=== PATIENT | male | born 1970 | race African-American/Black ===

== ENCOUNTER 2018-07-18 11:57 | Emergency (ER) | payer SELFPAY ==
[2018-07-18] VITALS (37 sets, daily range): BP systolic 169–208; BP diastolic 104–126; PULSE 68–100; RESP 0–33; TEMP 36.5–37.4; O2SAT 92–100
--- NOTE | 2018-07-18 12:11 | DI.CT_ITS ---
SYMPTOM/DIAGNOSIS: LEFT CHEST PAIN, HTN CTA CHEST, ABDOMEN AND PELVIS: 07/18/18 CT angiography of the chest, abdomen and pelvis was performed with a bolus infusion of 100 cc Omnipaque 350. Images obtained through the lungs show apparent ground glass and consolidative opacities of the left lung base consistent with pneumonia. Appropriate follow up chest radiographs requested Tracheobronchial tree appears intact. No mediastinal adenopathy. No evidence of pulmonary embolic disease or thoracic aortic dissection or aneurysm. Abdominal aorta is of normal diameter. Mild atheromatous plaque of the distal aorta and pelvic vessels noted. No evidence of aneurysm or dissection in aorta or major abdominal or pelvic branches. Dual left renal arteries noted which is a normal variant. There is unremarkable appearance of the liver except for a couple of low attenuation left hepatic lobe lesions, the largest measuring roughly 22 mm in diameter with peripheral nodular enhancement suggesting probable hemangioma. Ultrasound correlation suggested to evaluate for findings consistent with hemangioma. Small bilateral renal cysts noted. Spleen is unremarkable in appearance as is the pancreas. Gallbladder and bile ducts are CT normal. No abdominal or pelvic adenopathy seen. No significant abdominal wall hernia seen although there is a small fat containing umbilical hernia. Appendix appears normal. No evidence of diverticulitis or bowel obstruction. CONCLUSION: 1. Findings consistent with left lower lobe pneumonia, chest radiographic follow up suggested. 2. Indeterminate left lobe hepatic lesions, likely hemangioma. Ultrasound correlation recommended. 3. No evidence of pulmonary embolic disease or other major vascular abnormality.
--- NOTE | 2018-07-18 12:11 | DI.RAD_ITS ---
SYMPTOM/DIAGNOSIS: LT CHEST PAIN, HTN PORTABLE AP CHEST: 1220 HOURS, 07/18/18 The heart is not enlarged. There are patchy radiodensities in the left lung base consistent with pneumonia as identified on today's CTA Follow up PA and lateral chest requested following treatment.
--- NOTE | 2018-07-18 12:13 | W.ED.GENAD ---
Discharge Plan Disposition Patient Disposition: HOME Condition: Improving Discharge Details Chief Complaint: Chest Pain Clinical Impression: Left lower lobe pneumonia Primary Care Provider: None,None ED Provider: George Desai Home Meds and New Rx's Prescriptions: New cefdinir 300 mg capsule 300 mg PO Q12H 10 Days Qty: 20 RF: 0 guaifenesin [Mucinex] 600 mg tablet extended release 12hr 600 mg PO Q12H PRNQty: 10 RF: 0 Continued hydrochlorothiazide 12.5 mg Capsule 12.5 mg PO DAILY Qty: 30 RF: 0 Discharge Instructions Instructions: Pneumonia (ED) Additional Instructions: Home to rest. Small, frequent sips of fluids to maintain hydration. Tylenol 975 mg every 6 hours, and/or ibuprofen 800 mg every 8 hours as needed for aches, pains, fever. Take antibiotics as prescribed and restart hydrochlorothiazide. Our care management team will work to get you a follow-up to establish primary care Return to the emergency department for any acute concerns Medical Decision Making 48-year-old male with history of currently untreated hypertension presents with what he states is the abrupt onset of left chest pain that was radiates to his shoulder beginning this morning at 6 AM. He arrives to emergency department approximately noon with a blood pressure of 207/108 in moderate distress. With his untreated hypertension, left-sided chest pain, and coarse breath sounds differential diagnosis includes aortic dissection, pleurisy, pneumothorax, pneumonitis. Patient placed on a cardiac surgeon, 2 large-bore IVs placed, patient given small aliquot of morphine for pain, referred for stat laboratory testing, EKG and portable chest x-ray. Patient's diagnostics are notable for white blood cell count of 21, negative troponin, lactate <2, & elevated d-dimer Screening portable chest x-ray with question left basilar infiltrate. Given the patient's differential diagnosis and ongoing discomfort he was referred for CT scan of the chest/aorta. This reveals no evidence of pulmonary embolism or aortic dissection. Patient does have left basilar pneumonia. Patient given ketorolac, fluid bolus, and small amount of anxiolytic, as well as IV Rocephin. He was observed and repeat troponin obtained. Patient reveals that he has had 7-10 days without his HCTZ, which I will prescribed and restart at what he states is a dose of 12.5 mg/day. We will ask that he have care management to arrange an outpatient follow-up. He and his understand return precautions to the ED. Will be placed on 10 days of oral antibiotic Lab Data Lab results reviewed: Yes I reviewed the patient's lab results. Laboratory Tests Range/Units 07/18/18 07/18/18 07/18/18 12:10 12:10 12:10 WBC (4.4-10.8) k/cumm 21.49 H RBC (4.50-6.00) m/cumm 4.74 Hgb (13.5-17.5) g/dL 14.6 Hct (40.0-50.0) % 43.0 MCV (80-95) fL 90.7 MCH (27.0-33.0) pg 30.8 MCHC (32.0-36.0) g/dL 34.0 RDW (11.8-14.1) % 13.0 Plt Count (130-400) x1000/uL 254 MPV (8.0-11.0) fL 10.0 Immature Gran % 0.3 Neutrophils % 85.5 Lymphocytes % 10.2 Monocytes % 3.5 Eosinophils % 0.4 Basophils % 0.1 Absolute Neutrophils (1.2-6.7) k/cumm 18.37 H Absolute Lymphocytes (1.2-3.4) k/cumm 2.19 Absolute Monocytes (0.11-0.7) k/cumm 0.75 H Absolute Eosinophils (0.0-0.7) k/cumm 0.09 Absolute Basophils (0.0-0.2) k/cumm 0.02 APTT (21.0-31.4) sec 25.3 D-Dimer (<500) ng/mlFEU 1165 H Sodium Cancelled Potassium Cancelled Chloride Cancelled Carbon Dioxide Cancelled Anion Gap Cancelled BUN Cancelled Creatinine Cancelled Estimated GFR/1.73 m2 Cancelled Glucose Cancelled Lactate (0.6-1.4) mmol/L Calcium Cancelled Magnesium (1.8-2.4) mg/dL Total Bilirubin Cancelled AST Cancelled ALT Cancelled Alkaline Phosphatase Cancelled Troponin I (0.00-0.06) ng/mL Total Protein Cancelled Albumin Cancelled Patient ABO/Rh Antibody Screen Range/Units 07/18/18 07/18/18 07/18/18 12:10 12:10 13:05 WBC (4.4-10.8) k/cumm RBC (4.50-6.00) m/cumm Hgb (13.5-17.5) g/dL Hct (40.0-50.0) % MCV (80-95) fL MCH (27.0-33.0) pg MCHC (32.0-36.0) g/dL RDW (11.8-14.1) % Plt Count (130-400) x1000/uL MPV (8.0-11.0) fL Immature Gran % Neutrophils % Lymphocytes % Monocytes % Eosinophils % Basophils % Absolute Neutrophils (1.2-6.7) k/cumm Absolute Lymphocytes (1.2-3.4) k/cumm Absolute Monocytes (0.11-0.7) k/cumm Absolute Eosinophils (0.0-0.7) k/cumm Absolute Basophils (0.0-0.2) k/cumm APTT (21.0-31.4) sec D-Dimer (<500) ng/mlFEU Sodium 143 Potassium 4.1 Chloride 106 Carbon Dioxide 29.7 Anion Gap 7.3 BUN 11 Creatinine 1.10 Estimated GFR/1.73 m2 >= 60.00 Glucose 97 Lactate (0.6-1.4) mmol/L 1.6 H Calcium 9.4 Magnesium (1.8-2.4) mg/dL 1.5 L Total Bilirubin 0.5 AST 13 L ALT 22 Alkaline Phosphatase 76 Troponin I (0.00-0.06) ng/mL < 0.02 Total Protein 7.5 Albumin 4.0 Patient ABO/Rh O Positive Antibody Screen Negative ECG Data Attestation: I personally reviewed and interpreted this ECG (s) as follows: Interpretation: Normal sinus rhythm, rate of 84, the QRS is narrow, there is no ST segment elevation HPI General Mode of arrival: ambulatory. Date/Time Provider Initiated Documentation: 07/18/18 12:05. Limitations to Documentation: no limitations. Information obtained by: patient and family. History of Present Illness 48 year old M presents to the emergency department with the chief complaint of I was awakened by left-sided chest pain, described as severe, Quality is described as constant, and is localized to the left. Patient reports radiation to (To shoulder). Patient started experiencing this hour(s) and it has been constant. No relieving factors improve symptom(s), No exacerbating factors reported . Patient notes shortness of breath. Patient did receive the following treatments prior to arrival, none Related Data Home Medications Medication Instructions Recorded Confirmed cefdinir 300 mg PO Q12H 10 Days #20 cap 07/18/18 guaifenesin [Mucinex] 600 mg PO Q12H PRN #10 tab 07/18/18 hydrochlorothiazide 12.5 mg PO DAILY #30 cap 07/18/18 Previous Rx's Medication Instructions Recorded cefdinir 300 mg PO Q12H 10 Days #20 cap 07/18/18 guaifenesin [Mucinex] 600 mg PO Q12H PRN #10 tab 07/18/18 hydrochlorothiazide 12.5 mg PO DAILY #30 cap 07/18/18 Allergies Allergy/AdvReac Type Severity Reaction Status Date / Time No Known Allergies Allergy Unverified 07/18/18 12:52 General Stated Complaint: Chest Pain BELTRAN: 2 Review of Systems Review of Systems 8 systems reviewed and otherwise negative. Patient will note bloody ejaculate 2 days ago [facility] Social History Smoking/Tobacco Use Status: Current every day Exam Narrative Exam Narrative: GEN: awake, alert, oriented 3. Pleasant, well groomed, interactive. HEAD: Normocephalic, atraumatic ENT: Mucous membranes moist, oropharynx unremarkable, External ear exam unremarkable EYES: PERRL, EOMI NECK: Full ROM, no MADONNA, no menigismus CHEST/RESP: Nontender, clear to auscultation right, coarse breath sounds throughout left lung CARDIOVASCULAR: RRR, no murmur, rub mars. 2+ Rad pulse bilateral ABDOMEN: Soft, nontender, no mass. +Bowel sounds EXT: Full ROM, no edema, no rash Neuro: Grossly normal neurologic exam, conversant, interactive. Psych: Speech fluent, thoughts congruent, affect normal Course Vital Signs Temperature 36.5 C 07/18/18 12:05 Pulse 84 07/18/18 12:05 Respiratory Rate 14 07/18/18 12:05 Blood Pressure 207/108 H 07/18/18 12:05 Pulse Oximetry 99 07/18/18 12:05 Temperature 36.5 C 07/18/18 12:05 Temperature Source Temporal Artery Scan 12/23/18 12:05 Pulse 84 07/18/18 12:05 Respiratory Rate 14 07/18/18 12:05 Blood Pressure 207/108 H 07/18/18 12:05 Blood Pressure Position Sitting 07/18/18 12:05 Pulse Oximetry 99 07/18/18 12:05 Oxygen Delivery Method Room Air 07/18/18 12:05 Oxygen Flow Rate 0 07/18/18 12:05 Pain Level 9 07/18/18 12:05
--- NOTE | 2018-07-18 12:16 | ED.GENADUL_ITS ---
Discharge Plan Disposition Patient Disposition: HOME Condition: Improving Discharge Details Chief Complaint: Chest Pain Clinical Impression: Left lower lobe pneumonia Primary Care Provider: None,None ED Provider: George Desai Home Meds and New Rx's Prescriptions: New cefdinir 300 mg capsule 300 mg PO Q12H 10 Days Qty: 20 RF: 0 guaifenesin [Mucinex] 600 mg tablet extended release 12hr 600 mg PO Q12H PRNQty: 10 RF: 0 Continued hydrochlorothiazide 12.5 mg Capsule 12.5 mg PO DAILY Qty: 30 RF: 0 Discharge Instructions Instructions: Pneumonia (ED) Additional Instructions: Home to rest. Small, frequent sips of fluids to maintain hydration. Tylenol 975 mg every 6 hours, and/or ibuprofen 800 mg every 8 hours as needed for aches, pains, fever. Take antibiotics as prescribed and restart hydrochlorothiazide. Our care management team will work to get you a follow-up to establish primary care Return to the emergency department for any acute concerns Medical Decision Making 48-year-old male with history of currently untreated hypertension presents with what he states is the abrupt onset of left chest pain that was radiates to his shoulder beginning this morning at 6 AM. He arrives to emergency department approximately noon with a blood pressure of 207/108 in moderate distress. With his untreated hypertension, left-sided chest pain, and coarse breath sounds differential diagnosis includes aortic dissection, pleurisy, pneumothorax, pneumonitis. Patient placed on a monitoring tech, 2 large-bore IVs placed, patient given small aliquot of morphine for pain, referred for stat laboratory testing, EKG and portable chest x-ray. Patient's diagnostics are notable for white blood cell count of 21, negative troponin, lactate <2, & elevated d-dimer Screening portable chest x-ray with question left basilar infiltrate. Given the patient's differential diagnosis and ongoing discomfort he was referred for CT scan of the chest/aorta. This reveals no evidence of pulmonary embolism or aortic dissection. Patient does have left basilar pneumonia. Patient given ketorolac, fluid bolus, and small amount of anxiolytic, as well as IV Rocephin. He was observed and repeat troponin obtained. Patient reveals that he has had 7-10 days without his HCTZ, which I will prescribed and restart at what he states is a dose of 12.5 mg/day. We will ask that he have care management to arrange an outpatient follow-up. He and his w katerine understand return precautions to the ED. Will be placed on 10 days of oral antibiotic Lab Data Lab results reviewed: Yes I reviewed the patient's lab results. Laboratory Tests Range/Units 07/18/18 07/18/18 07/18/18 12:10 12:10 12:10 WBC (4.4-10.8) k/cumm 21.49 H RBC (4.50-6.00) m/cumm 4.74 Hgb (13.5-17.5) g/dL 14.6 Hct (40.0-50.0) % 43.0 MCV (80-95) fL 90.7 MCH (27.0-33.0) pg 30.8 MCHC (32.0-36.0) g/dL 34.0 RDW (11.8-14.1) % 13.0 Plt Count (130-400) x1000/uL 254 MPV (8.0-11.0) fL 10.0 Immature Gran % 0.3 Neutrophils % 85.5 Lymphocytes % 10.2 Monocytes % 3.5 Eosinophils % 0.4 Basophils % 0.1 Absolute Neutrophils (1.2-6.7) k/cumm 18.37 H Absolute Lymphocytes (1.2-3.4) k/cumm 2.19 Absolute Monocytes (0.11-0.7) k/cumm 0.75 H Absolute Eosinophils (0.0-0.7) k/cumm 0.09 Absolute Basophils (0.0-0.2) k/cumm 0.02 APTT (21.0-31.4) sec 25.3 D-Dimer (<500) ng/mlFEU 1165 H Sodium Cancelled Potassium Cancelled Chloride Cancelled Carbon Dioxide Cancelled Anion Gap Cancelled BUN Cancelled Creatinine Cancelled Estimated GFR/1.73 m2 Cancelled Glucose Cancelled Lactate (0.6-1.4) mmol/L Calcium Cancelled Magnesium (1.8-2.4) mg/dL Total Bilirubin Cancelled AST Cancelled ALT Cancelled Alkaline Phosphatase Cancelled Troponin I (0.00-0.06) ng/mL Total Protein Cancelled Albumin Cancelled Patient ABO/Rh Antibody Screen Range/Units 07/18/18 07/18/18 07/18/18 12:10 12:10 13:05 WBC (4.4-10.8) k/cumm RBC (4.50-6.00) m/cumm Hgb (13.5-17.5) g/dL Hct (40.0-50.0) % MCV (80-95) fL MCH (27.0-33.0) pg MCHC (32.0-36.0) g/dL RDW (11.8-14.1) % Plt Count (130-400) x1000/uL MPV (8.0-11.0) fL Immature Gran % Neutrophils % Lymphocytes % Monocytes % Eosinophils % Basophils % Absolute Neutrophils (1.2-6.7) k/cumm Absolute Lymphocytes (1.2-3.4) k/cumm Absolute Monocytes (0.11-0.7) k/cumm Absolute Eosinophils (0.0-0.7) k/cumm Absolute Basophils (0.0-0.2) k/cumm APTT (21.0-31.4) sec D-Dimer (<500) ng/mlFEU Sodium 143 Potassium 4.1 Chloride 106 Carbon Dioxide 29.7 Anion Gap 7.3 BUN 11 Creatinine 1.10 Estimated GFR/1.73 m2 >= 60.00 Glucose 97 Lactate (0.6-1.4) mmol/L 1.6 H Calcium 9.4 Magnesium (1.8-2.4) mg/dL 1.5 L Total Bilirubin 0.5 AST 13 L ALT 22 Alkaline Phosphatase 76 Troponin I (0.00-0.06) ng/mL < 0.02 Total Protein 7.5 Albumin 4.0 Patient ABO/Rh O Positive Antibody Screen Negative ECG Data Attestation: I personally reviewed and interpreted this ECG (s) as follows: Interpretation: Normal sinus rhythm, rate of 84, the QRS is narrow, there is no ST segment elevation HPI General Mode of arrival: ambulatory . Date/Time Provider Initiated Documentation: 07/18/18 12:05 . Limitations to Documentation: no limitations . Information obtained by: patient and family . History of Present Illness 48 year old M presents to the emergency department with the chief complaint of I was awakened by left-sided chest pain, described as severe, Quality is described as constant, and is localized to the left. Patient reports radiation to (To shoulder). Patient started experiencing this hour(s) and it has been constant. No relieving factors improve symptom(s), No exacerbating factors reported . Patient notes shortness of breath. Patient did receive the following treatments prior to arrival, none Related Data Home Medications Medication Instructions Recorded Confirmed cefdinir 300 mg PO Q12H 10 Days #20 cap 07/18/18 guaifenesin [Mucinex] 600 mg PO Q12H PRN #10 tab 07/18/18 hydrochlorothiazide 12.5 mg PO DAILY #30 cap 07/18/18 Previous Rx's Medication Instructions Recorded cefdinir 300 mg PO Q12H 10 Days #20 cap 07/18/18 guaifenesin [Mucinex] 600 mg PO Q12H PRN #10 tab 07/18/18 hydrochlorothiazide 12.5 mg PO DAILY #30 cap 07/18/18 Allergies Allergy/AdvReac Type Severity Reaction Status Date / Time No Known Allergies Allergy Unverified 07/18/18 12:52 General Stated Complaint: Chest Pain BELTRAN: 2 Review of Systems Review of Systems 8 systems reviewed and otherwise negative. Patient will note bloody ejaculate 2 days ago [facility] Social History Smoking/Tobacco Use Status: Current every day Exam Narrative Exam Narrative: GEN: awake, alert, oriented 3. Pleasant, well groomed, interactive. HEAD: Normocephalic, atraumatic ENT: Mucous membranes moist, oropharynx unremarkable, External ear exam unremarkable EYES: PERRL, EOMI NECK: Full ROM, no MADONNA, no menigismus CHEST/RESP: Nontender, clear to auscultation right, coarse breath sounds throughout left lung CARDIOVASCULAR: RRR, no murmur, rub mars. 2+ Rad pulse bilateral ABDOMEN: Soft, nontender, no mass. +Bowel sounds EXT: Full ROM, no edema, no rash Neuro: Grossly normal neurologic exam, conversant, interactive. Psych: Speech fluent, thoughts congruent, affect normal Course Vital Signs Temperature 36.5 C 07/18/18 12:05 Pulse 84 07/18/18 12:05 Respiratory Rate 14 07/18/18 12:05 Blood Pressure 207/108 H 07/18/18 12:05 Pulse Oximetry 99 07/18/18 12:05 Temperature 36.5 C 07/18/18 12:05 Temperature Source Temporal Artery Scan 07/18/18 12:05 Pulse 84 07/18/18 12:05 Respiratory Rate 14 07/18/18 12:05 Blood Pressure 207/108 H 07/18/18 12:05 Blood Pressure Position Sitting 07/18/18 12:05 Pulse Oximetry 99 07/18/18 12:05 Oxygen Delivery Method Room Air 07/18/18 12:05 Oxygen Flow Rate 0 07/18/18 12:05 Pain Level 9 07/18/18 12:05
[2018-07-18] MEDS: MORPHine 10 MG/ML VIAL 2 MG IVP (12:19)
[2018-07-18 12:26] LABS: Abs Immature Grans 0.06 k/cumm (0.0-0.09); Basophils % 0.1; Eosinophils % 0.4; HGB 14.6 g/dL (13.5-17.5); Immature Grans % 0.3; Lymphocytes % 10.2; Mean Corpuscular Hemoglobin 30.8 pg (27.0-33.0); Mean Corpuscular Volume 90.7 fL (80-95); Monocytes % 3.5; Neutrophils % 85.5; Platelet Count 254 x1000/uL (130-400); RBC 4.74 m/cumm (4.50-6.00); White Blood Cell Count 21.49 k/cumm (4.4-10.8)
[2018-07-18 12:33] LABS: Absolute Basophil Count 0.02 k/cumm (0.0-0.2); Absolute Eosinophil Count 0.09 k/cumm (0.0-0.7); Absolute Lymphocyte Count 2.19 k/cumm (1.2-3.4); Absolute Monocyte Count 0.75 k/cumm (0.11-0.7); Absolute Neutrophil Count 18.37 k/cumm (1.2-6.7)
[2018-07-18] MEDS: MORPHine 10 MG/ML VIAL 4 MG IVP (12:40)
[2018-07-18 12:41] LABS: PTT Activated 25.3 sec (21.0-31.4)
--- NOTE | 2018-07-18 12:43 | DI.VRAD_ITS ---
EXAM: XR Chest, 1 View EXAM DATE/TIME: 07/18/2018 12:13 PM CLINICAL HISTORY: 48 years old, male; Pain; Other: Lt chest pain HTN TECHNIQUE: XR of the chest, 1 view. COMPARISON: CR CHEST 2 VIEWS PA,LAT 06/26/2017 11:41 AM FINDINGS: Lungs: Mild left basilar atelectasis and/or pneumonia. Pleural space: Unremarkable. No pleural effusion. No pneumothorax. Heart/Mediastinum: Unremarkable. No cardiomegaly. Bones/joints: Mild dextroscoliosis. Other findings: Patient rotation to the left. IMPRESSION: Mild left basilar atelectasis and/or pneumonia. Dictated and Authenticated by: Jere Orellana MD. Ordering:GRIFFIN Vazquez MD
[2018-07-18] MEDS: Normal Saline 1,000 ML 150 ML IV (12:45)
[2018-07-18 12:47] LABS: ALT 22 U/L (12-78); AST 13 U/L (15-37); Alkaline Phosphatase 76 U/L (46-116); Anion Gap 7.3 mmol/L (3-11); BUN 11 mg/dL (7-18); Bilirubin, Total 0.5 mg/dL (0.2-1.0); CO2 29.7 mmol/L (21.0-32.0); Calcium 9.4 mg/dL (8.5-10.1); Chloride 106 mmol/L (98-107); Glucose 97 mg/dL (70-100); Magnesium 1.5 mg/dL (1.8-2.4); Potassium 4.1 mmol/L (3.5-5.1); Sodium 143 mmol/L (136-145); Total Protein 7.5 g/dL (6.4-8.2)
[2018-07-18 12:48] LABS: Troponin I < 0.02 ng/mL (0.00-0.06)
--- NOTE | 2018-07-18 12:53 | NUR.NOTE ---
Pt. states he has not taken his HCTZ in about a week.
[2018-07-18 12:56] LABS: D-Dimer 1165 ng/mlFEU (<500)
[2018-07-18] MEDS: Omnipaque 350 MG/ML 100 ML BTL IJ (13:03)
[2018-07-18] MEDS: Normal Saline 1,000 ML 1000 ML IV (13:10)
[2018-07-18 13:14] LABS: Lactate-non-spesis 1.6 mmol/L (0.6-1.4)
--- NOTE | 2018-07-18 13:27 | DI.VRAD_ITS ---
EXAM: CT Angiography Chest With Contrast EXAM DATE/TIME: 07/18/2018 12:13 PM CLINICAL HISTORY: 48 years old, male; Pain; Chest pain; Left-sided chest pain; Patient HX: L chest pain, HTN TECHNIQUE: Axial computed tomographic angiography images of the chest with intravenous contrast using CT angiography protocol. MIP reconstructed images were created and reviewed. COMPARISON: SC XR PORTABLE CHEST AP 07/18/2018 12:19 PM FINDINGS: Pulmonary arteries: No pulmonary embolus or aortic dissection. There is poor opacification of the pulmonary artery, however by adjusting the windows, no obvious pulmonary embolus is identified. Aorta: Normal. No aortic aneurysm. No aortic dissection. Lungs: Mild left basilar pneumonia. Pleural space: Normal. No pneumothorax. No pleural effusion. Heart: Normal. No cardiomegaly. No pericardial effusion. Lymph nodes: Unremarkable. No enlarged lymph nodes. Bones/joints: Unremarkable. No acute fracture. Soft tissues: Unremarkable. IMPRESSION: 1. Mild left basilar pneumonia. 2. No pulmonary embolus or aortic dissection. EXAM: CT Angiography Abdomen and Pelvis With Contrast EXAM DATE/TIME: 07/18/2018 12:13 PM CLINICAL HISTORY: 48 years old, male; Pain; Chest pain; Left-sided chest pain; Patient HX: L chest pain, HTN TECHNIQUE: Axial computed tomographic angiography images of the abdomen and pelvis with intravenous contrast material, including non-contrast images if performed. MIP and/or 3D reconstructed images were created and reviewed. COMPARISON: SC XR PORTABLE CHEST AP 07/18/2018 12:19 PM FINDINGS: VASCULATURE: Aorta: Calcification of the abdominal aorta and/or iliac arteries consistent with atherosclerotic vessel disease. Calcification of the abdominal aorta and/or iliac arteries consistent with atherosclerotic vessel disease. Celiac trunk and mesenteric arteries: No occlusion or significant stenosis. Renal arteries: 2 left renal arteries which is a normal variant. Right iliac arteries: No occlusion or significant stenosis. Right femoral/popliteal arteries: No occlusion or significant stenosis of the imaged proximal femoral artery. The popliteal artery was not imaged. Left iliac arteries: No occlusion or significant stenosis. Left femoral/popliteal arteries: No occlusion or significant stenosis of the imaged proximal femoral artery. The popliteal artery was not imaged. ABDOMEN: Liver: Low density focal fatty infiltration within the liver, anterior to the falciform ligament. This is a common finding. 2.0 cm low-density left liver lesion most consistent with benign hepatic hemangioma. Gallbladder and bile ducts: Unremarkable. No calcified stones. No ductal dilation. Pancreas: Unremarkable. No mass. No ductal dilation. Spleen: Unremarkable. No splenomegaly. Adrenals: Unremarkable. No mass. Kidneys and ureters: Multiple left renal cysts with the largest measuring 1.0 cm. Multiple right simple renal cysts with the largest measuring 1.2 cm. Stomach and bowel: Unremarkable. No obstruction. No mucosal thickening. Appendix: No evidence of appendicitis. PELVIS: Bladder: Unremarkable. No mass. Reproductive: Unremarkable as visualized. ABDOMEN and PELVIS: Intraperitoneal space: Unremarkable. No free air. No significant fluid collection. Bones/joints: No acute fracture. No dislocation. Soft tissues: Unremarkable. Lymph nodes: Unremarkable. No enlarged lymph nodes. IMPRESSION: No acute findings. Dictated and Authenticated by: Jere Orellana MD. Ordering:GRIFFIN Vazquez MD
[2018-07-18] MEDS: Ketorolac 30 MG/ML VIAL IVP (13:35)
[2018-07-18] MEDS: LORazepam 2 MG/ML VIAL 0.5 MG IVP (13:35)
--- NOTE | 2018-07-18 14:19 | NUR.NOTE ---
Pt. sleeping, RR WNL.
--- NOTE | 2018-07-18 14:58 | NUR.NOTE ---
Pt. continues to sleep, RR WNL. Remains hypertensive. Plan to let rest and reevaluate.
[2018-07-18 15:32] LABS: Bilirubin Negative (Negative); Blood Negative (Negative); Clarity Clear; Glucose Negative (Negative); Ketones Negative (Negative); Leukocyte Esterase Negative (Negative); Nitrite Negative (Negative); Urobilinogen 0.2 EU/dL (Up TO 0.2)
[2018-07-18 15:36] LABS: Troponin I < 0.02 ng/mL (0.00-0.06)
--- NOTE | 2018-07-18 15:39 | NUR.NOTE ---
MD Desai is at the bedside.
== END 2018-07-18 16:02 | disposition home or self-care (01) ==
PROVIDERS: Emergency Provider Emergency Medicine
DX: R07.9 Chest pain, unspecified (principal); R79.1 Abnormal coagulation profile; I10 Essential (primary) hypertension; J18.9 Pneumonia, unspecified organism; F17.210 Nicotine dependence, cigarettes, uncomplicated
CPT/HCPCS: 36415; 74177; 80053; 86850; 86900; 86901; 93005; 96361; 96365; 96375; 99285; 71045; 81003; 83605; 83735; 84484; 85025; 85379; 85730; 93010; J0696; J1885; J2060; J2270; J3490

== ENCOUNTER 2018-12-21 17:04 | Emergency (ER) | payer SELFPAY ==
[2018-12-21 17:07] VITALS: BP 180/113; PULSE 104; RESP 16; TEMP 36.8; O2SAT 98
--- NOTE | 2018-12-21 17:25 | DI.RAD_ITS ---
SYMPTOM/DIAGNOSIS: FELL, PAIN, SWELLING OF 2ND MCP RIGHT HAND: A comminuted intra-articular fracture of the head of the second metacarpal is demonstrated. There is slight splaying of the fracture fragments but no significant displacement is evident. There is no evidence of a dislocation.
--- NOTE | 2018-12-21 17:27 | W.ED.GENAD ---
Discharge Plan Disposition Patient Disposition: HOME Discharge Details Chief Complaint: Orthopedic Clinical Impression: Fracture of second metacarpal bone of right hand Primary Care Provider: None,None ED Provider: Carlito Dupont Home Meds and New Rx's Prescriptions: New ibuprofen 600 mg tablet 600 mg PO TID PRN (Reason: pain) Qty: 60 RF: 0 Continued hydrochlorothiazide 12.5 mg Capsule 12.5 mg PO DAILY Qty: 30 RF: 0 Discharge Instructions Instructions: Hand Fracture (ED) Additional Instructions: Please take ibuprofen 600mg by mouth every 6 hours as needed for pain. Keep splint clean, dry and intact. No use of right hand. Please follow-up with orthopedics. Call tomorrow to arrange follow-up. Return to the ER for any worsening or new concerning symptoms. Referrals: [facility] [Provider Group] Madhu Garcia MD [ [facility] STAFF PHYSICIAN] - Medical Decision Making 48-year-old male here with right hand injury. Concern for fracture of the proximal second proximal phalanx versus distal metacarpal. Intact neurologically distal second digit. No other injury. No laceration. Offered tylenol and ibuprofen and patient declined. X-ray of the hand reviewed and interpreted by me: comminuted intra articular fx distal 2nd MC Radiology interpreted as: Findings/impression: Bones/joints: Comminuted intra-articular fracture of the second metacarpal head with slight splaying of fracture fragments, but no significant displacement. Joints are well aligned. CT of the right hand interpreted by radiology: IMPRESSION: 1. Comminuted, intra-articular, and overriding fracture of the second metacarpal head, as detailed above. 2. Concern for mild volar subluxation of the second metacarpophalangeal joint. 3. Soft tissue swelling of the fracture site. A volar resting splint was applied by me. Patient neurovascularly intact distal to splint post application. Patient was instructed to call orthopedics tomorrow to arrange follow-up. He was instructed to keep the splint clean dry and intact and to not use his right hand. He was encouraged to return to the ED for any worsening or new concerning symptoms. Patient verbalized understanding of discharge instructions. HPI General Date/Time Provider Initiated Documentation: 12/21/18 17:22. HPI Narrative: 48-year-old male who tripped and fell and landed on his right hand just prior to arrival. He is here with chief complaint of right second proximal digit pain. Pain is moderate and worse on palpation and with attempted movement of the second digit. No associated numbness. No other injury. No laceration. Related Data Home Medications Medication Instructions Recorded Confirmed hydrochlorothiazide 12.5 mg PO DAILY #30 cap 07/18/18 12/21/18 ibuprofen 600 mg PO TID PRN #60 tab 12/21/18 Previous Rx's Medication Instructions Recorded hydrochlorothiazide 12.5 mg PO DAILY #30 cap 07/18/18 ibuprofen 600 mg PO TID PRN #60 tab 12/21/18 Allergies Allergy/AdvReac Type Severity Reaction Status Date / Time No Known Allergies Allergy Unverified 07/18/18 12:52 General Stated Complaint: Orthopedic BELTRAN: 4 Review of Systems Musculoskeletal Reports as per HPI Integumentary/Breasts Reports other (no laceration) Neurologic Reports as per HPI [facility] Social History Smoking/Tobacco Use Status: Current every day Tobacco Type: cigarettes Alcohol Intake: current Alcohol Intake frequency: a few times a week Drug use: Occasionally Substance use type: marijuana Do you feel safe at home: Yes Do you feel safe in your relationship?: Yes Exam Const General: cooperative and no acute distress Cardio Rate: regular rate and not tachycardic Rhythm: regular rhythm Pulses: radial pulses present on the right 2+ Skin Trauma: no lacerations or abrasions (rt hand) Neuro General: alert and awake Sensory Exam: no sensory deficits noted (rt hand) Extrem General: no edema Right upper extremity: hand Details: neurosensory exam normal, tenderness Location: of the 2nd digit Location: at the MCP joint, abnormal ROM of finger (limited extension 2nd digit at MCP 2/2 pain) and swelling Location: of the 2nd digit Location: at the MCP joint Course Vital Signs Temperature 36.8 C 12/21/18 17:07 Pulse 104 H 12/21/18 17:07 Respiratory Rate 16 12/21/18 17:07 Blood Pressure 180/113 H 12/21/18 17:07 Pulse Oximetry 98 12/21/18 17:07 Temperature 36.8 C 12/21/18 17:07 Temperature Source Skin 12/21/18 17:07 Pulse 104 H 12/21/18 17:07 Respiratory Rate 16 05/28/19 17:07 Respiratory Effort Non-Labored 12/21/18 17:11 Blood Pressure 180/113 H 12/21/18 17:07 Blood Pressure Position Sitting 12/21/18 17:07 Pulse Oximetry 98 12/21/18 17:07 Oxygen Delivery Method Room Air 12/21/18 17:07 Oxygen Flow Rate 0 12/21/18 17:07
--- NOTE | 2018-12-21 17:30 | ED.GENADUL_ITS ---
Discharge Plan Disposition Patient Disposition: HOME Discharge Details Chief Complaint: Orthopedic Clinical Impression: Fracture of second metacarpal bone of right hand Primary Care Provider: None,None ED Provider: Carlito Dupont Home Meds and New Rx's Prescriptions: New ibuprofen 600 mg tablet 600 mg PO TID PRN (Reason: pain) Qty: 60 RF: 0 Continued hydrochlorothiazide 12.5 mg Capsule 12.5 mg PO DAILY Qty: 30 RF: 0 Discharge Instructions Instructions: Hand Fracture (ED) Additional Instructions: Please take ibuprofen 600mg by mouth every 6 hours as needed for pain. Keep splint clean, dry and intact. No use of right hand. Please follow-up with orthopedics. Call tomorrow to arrange follow-up. Return to the ER for any worsening or new concerning symptoms. Referrals: [facility] [Provider Group] Madhu Garcia MD [ [facility] STAFF PHYSICIAN] - Medical Decision Making 48-year-old male here with right hand injury. Concern for fracture of the proximal second proximal phalanx versus distal metacarpal. Intact neurologically distal second digit. No other injury. No laceration. Offered tylenol and ibuprofen and patient declined. X-ray of the hand reviewed and interpreted by me: comminuted intra articular fx distal 2nd MC Radiology interpreted as: Findings/impression: Bones/joints: Comminuted intra-articular fracture of the second metacarpal head with slight splaying of fracture fragments, but no significant displacement. Joints are well aligned. CT of the right hand interpreted by radiology: IMPRESSION: 1. Comminuted, intra-articular, and overriding fracture of the second metacarpal head, as detailed above. 2. Concern for mild volar subluxation of the second metacarpophalangeal joint. 3. Soft tissue swelling of the fracture site. A volar resting splint was applied by me. Patient neurovascularly intact distal to splint post application. Patient was instructed to call orthopedics tomorrow to arrange follow-up. He was instructed to keep the splint clean dry and intact and to not use his right hand. He was encouraged to return to the ED for any worsening or new concerning symptoms. Patient verbalized understanding of discharge instructions. HPI General Date/Time Provider Initiated Documentation: 12/21/18 17:22 . HPI Narrative: 48-year-old male who tripped and fell and landed on his right hand just prior to arrival. He is here with chief complaint of right second proximal digit pain. Pain is moderate and worse on palpation and with attempted movement of the second digit. No associated numbness. No other injury. No laceration. Related Data Home Medications Medication Instructions Recorded Confirmed hydrochlorothiazide 12.5 mg PO DAILY #30 cap 07/18/18 12/21/18 ibuprofen 600 mg PO TID PRN #60 tab 12/21/18 Previous Rx's Medication Instructions Recorded hydrochlorothiazide 12.5 mg PO DAILY #30 cap 07/18/18 ibuprofen 600 mg PO TID PRN #60 tab 12/21/18 Allergies Allergy/AdvReac Type Severity Reaction Status Date / Time No Known Allergies Allergy Unverified 07/18/18 12:52 General Stated Complaint: Orthopedic BELTRAN: 4 Review of Systems Musculoskeletal Reports as per HPI Integumentary/Breasts Reports other (no laceration) Neurologic Reports as per HPI [facility] Social History Smoking/Tobacco Use Status: Current every day Tobacco Type: cigarettes Alcohol Intake: current Alcohol Intake frequency: a few times a week Drug use: Occasionally Substance use type: marijuana Do you feel safe at home: Yes Do you feel safe in your relationship?: Yes Exam Const General: cooperative and no acute distress Cardio Rate: regular rate and not tachycardic Rhythm: regular rhythm Pulses: radial pulses present on the right 2+ Skin Trauma: no lacerations or abrasions (rt hand) Neuro General: alert and awake Sensory Exam: no sensory deficits noted (rt hand) Extrem General: no edema Right upper extremity: hand Details: neurosensory exam normal, tenderness L ocation: of the 2nd digit Location: at the MCP joint, abnormal ROM of finger (limited extension 2nd digit at MCP 2/2 pain) and swelling Location: of the 2nd digit Location: at the MCP joint Course Vital Signs Temperature 36.8 C 12/21/18 17:07 Pulse 104 H 12/21/18 17:07 Respiratory Rate 16 12/21/18 17:07 Blood Pressure 180/113 H 12/21/18 17:07 Pulse Oximetry 98 12/21/18 17:07 Temperature 36.8 C 12/21/18 17:07 Temperature Source Skin 12/21/18 17:07 Pulse 104 H 12/21/18 17:07 Respiratory Rate 16 12/21/18 17:07 Respiratory Effort Non-Labored 12/21/18 17:11 Blood Pressure 180/113 H 12/21/18 17:07 Blood Pressure Position Sitting 12/21/18 17:07 Pulse Oximetry 98 12/21/18 17:07 Oxygen Delivery Method Room Air 12/21/18 17:07 Oxygen Flow Rate 0 12/21/18 17:07
--- NOTE | 2018-12-21 17:58 | DI.VRAD_ITS ---
EXAM: XR Right Hand EXAM DATE/TIME: 12/21/2018 5:27 PM CLINICAL HISTORY: 48 years old, male; Signs and symptoms; Other: Fall, pain, swelling 2nd mcp TECHNIQUE: Imaging protocol: XR Right hand. Views: 3 or more views. COMPARISON: No relevant prior studies available. Findings/impression: Bones/joints: Comminuted intra-articular fracture of the second metacarpal head with slight splaying of fracture fragments, but no significant displacement. Joints are well aligned. Dictated and Authenticated by: Akhil Angel MD. Ordering:FAVIAN Esteban MD
--- NOTE | 2018-12-21 18:36 | DI.CT_ITS ---
SYMPTOM/DIAGNOSIS: FX 2ND METACARPAL RIGHT HAND CT: A CT scan of the hand was performed without contrast enhancement. There is an apparent severely comminuted fracture of the second metacarpal head with fracture line extending into the adjacent joint. There is overriding of the fracture fragments of approximately 9 mm. There is approximately half shaft width volar displacement of the distal fracture fragments. There is likewise mild distraction of the fracture fragments. No other acute displaced fractures are seen. There is no evidence of a dislocation. There is however some concern for mild volar subluxation at the second metacarpal joint. Prominent soft tissue swelling is noted over the dorsum of the hand. SUMMARY: A comminuted, intra-articular overriding fracture of the second metacarpal head is demonstrated. There may be mild volar subluxation at the second metacarpal phalangeal joint.
[2018-12-21] MEDS: Ibuprofen 600 MG TAB PO (19:12)
--- NOTE | 2018-12-21 19:12 | DI.VRAD_ITS ---
EXAM: CT Right Upper Extremity Without Contrast, Hand EXAM DATE/TIME: 12/21/2018 6:37 PM CLINICAL HISTORY: 48 years old, male; Signs and symptoms; Other: FX 2nd mc, hand only TECHNIQUE: Imaging protocol: CT of the Right upper extremity without contrast was performed. Exam focused on the hand. Coronal and sagittal reformatted images were created and reviewed. Radiation optimization: All CT scans at this facility use at least one of these dose optimization techniques: automated exposure control; mA and/or kV adjustment per patient size (includes targeted exams where dose is matched to clinical indication); or iterative reconstruction. COMPARISON: CR XR hand RT complete 12/21/2018 5:35 PM FINDINGS: Bones/joints: There is a severely comminuted fracture of the second metacarpal head with fracture lines extending intra-articularly. There is overriding of fracture fragments of approximately 9 mm. There is approximately half shaft width volar displacement of the distal fracture fragments. There is likewise mild distraction of fracture fragments. No other acutely displaced fractures are appreciated. No evidence of dislocation, however there is concern for mild volar subluxation of the second metacarpophalangeal joint. Soft tissues: There is significant soft tissue swelling about the fracture site. IMPRESSION: 1. Comminuted, intra-articular, and overriding fracture of the second metacarpal head, as detailed above. 2. Concern for mild volar subluxation of the second metacarpophalangeal joint. 3. Soft tissue swelling of the fracture site. Dictated and Authenticated by: Royce Schumacher MD. Ordering:FAVIAN Esteban MD
[2018-12-21 19:49] VITALS: BP 160/98; PULSE 104; RESP 16; TEMP 36.8; O2SAT 98
--- NOTE | 2018-12-23 08:52 | PDOC.ERCMPRO ---
Care Management Progress Note 12/23-Dr. Garcia has reviewed the images and states that Mt needs hand surgery at [facility]. This CM called [facility] and spoke with Alexandria. Alexandria states that Dr. Ayala is the only hand surgeon at [facility]. Alexandria requested imaging be pushed to Dr. Ayala and that the reports, including ED reports get faxed to their clinic at [phone]. Alexandria states they will reach out to patient for f/u after the referral has been reviewed. Spoke with Luis in DI and he will push the reports to Dr. Ayala. Provider notes, DI reports, and demographics faxed to [facility]. Patient does not have a PCP. Dr. Sebastian vision teacher. Referral faxed to [facility] for f/u and to establish.
--- NOTE | 2018-12-23 08:57 | CMPROGNOTE_ITS ---
Care Management Progress Note 12/23-Dr. Garcia has reviewed the images and states that Mt needs hand surgery at [facility]. This CM called [facility] and spoke with Alexandria. Alexandria states that Dr. Ayala is the only hand surgeon at [facility]. Alexandria requested imaging be pushed to Dr. Ayala and that the reports, including ED reports get faxed to their clinic at [phone]. Alexandria states they will reach out to patient for f/u after the referral has been reviewed. Spoke with Luis in DI and he will push the reports to Dr. Ayala. Provider notes, DI reports, and demographics faxed to [facility]. Patient does not have a PCP. 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 Referral faxed to [facility] for f/u and to establish.
== END 2018-12-21 19:49 | disposition home or self-care (01) ==
PROVIDERS: Emergency Provider Student in an Organized Health Care Education/Training Program
DX: S62.330A Displaced fracture of neck of second metacarpal bone, right hand, initial encounter for closed fracture (principal); W10.8XXA Fall (on) (from) other stairs and steps, initial encounter; W22.8XXA Striking against or struck by other objects, initial encounter
CPT/HCPCS: 26600; 73130; 73200

== ENCOUNTER 2019-09-16 23:55 | Emergency (ER) | payer OTHER, SELFPAY ==
[2019-09-17 00:08] VITALS: BP 175/113; PULSE 86; RESP 16; TEMP 37.1; O2SAT 98
--- NOTE | 2019-09-17 00:14 | ED.GENADUL_ITS ---
Discharge Plan Disposition Patient Disposition: HOME Condition: Stable Discharge Details Chief Complaint: Orthopedic Clinical Impression: Fracture of fifth metacarpal bone Primary Care Provider: None,None ED Provider: Jere Salgado Home Meds and New Rx's Prescriptions: Continued ibuprofen 600 mg tablet 600 mg PO TID PRN (Reason: pain) Qty: 60 RF: 0 hydrochlorothiazide 12.5 mg Capsule 12.5 mg PO DAILY Qty: 30 RF: 0 Discharge Instructions Instructions: Boxer Fracture (ED) Additional Instructions: call orthopedics on Thursday for an appointment if you have severe worsening pain return to the emergency department for reevaluation Stand Alone Forms: Work Release Referrals: Madhu Garcia MD [ [facility] STAFF PHYSICIAN] - Medical Decision Making 49 yo male with hx of htn and not currently taking his medication for quite some time due to not wanting to take it per patient, who comes in with right hand pain. He states he tripped and fell from standing an hour ago landing on right hand. Denies hitting head, loc, has no head ache, no neck tenderness with full rom, no abd pain, no chest pain. He has a swollen right hand with pain over mid 5th and 4th metacarpals and pain with movement of 5th and 4th fingers. No pain in wrist with full rom of the wrist and remaining fingers. Suspect fracture, will obtian xray. Has a small skin tear on posterior middle finger that is not deep enough to require sutures. xray shows likely angulation of 5th metacarpal head that is where his pain is so suspect this is new. Placed in ulnar gutter splint, will have him f/u with ortho Differential Diagnosis Differential Diagnosis: right hand fracture, contusion, dislocation, boxer's fx Imaging Data Radiologic Study: Attestation: I personally reviewed and interpreted this imaging study as follows: Imaging: X-Ray Radiologist's impression: IMPRESSION: 1. Abnormal angulation of the 5th metacarpal head is new from prior 12/21/2018 radiograph and consistent with age indeterminate traumatic deformity. Recommend clinical correlation. 2. No radiodense foreign body. 3. Posttraumatic deformity of the 2nd metacarpal head. HPI General Mode of arrival: ambulatory . Date/Time Provider Initiated Documentation: 09/16/19 23:55 . Limitations to Documentation: no limitations . Information obtained by: patient . History of Present Illness 49 year old M presents to the emergency department with the chief complaint of right hand pain, described as moderate, Patient reports no radiation. Patient started experiencing this hour(s) (1) and it has been constant. No relieving factors improve symptom(s), No exacerbating factors reported . Patient did receive the following treatments prior to arrival, none Related Data Home Medications Medication Instructions Recorded Confirmed hydrochlorothiazide 12.5 mg PO DAILY #30 cap 07/18/18 09/17/19 ibuprofen 600 mg PO TID PRN #60 tab 12/21/18 09/17/19 Previous Rx's Medication Instructions Recorded hydrochlorothiazide 12.5 mg PO DAILY #30 cap 07/18/18 ibuprofen 600 mg PO TID PRN #60 tab 12/21/18 Allergies Allergy/AdvReac Type Severity Reaction Status Date / Time No Known Allergies Allergy Unverified 09/17/19 00:17 General Stated Complaint: Orthopedic BELTRAN: 4 Review of Systems All systems reviewed & are unremarkable except as noted in HPI and below Constitutional Constitutional: Denies chills, Denies fever(s) and Denies weakness Cardiovascular Cardiovascular: Denies chest pain and Denies dyspnea Respiratory Respiratory: Denies cough and Denies dyspnea Gastrointestinal Gastrointestinal: Denies abdominal pain, Denies nausea and Denies vomiting Neurologic Neurologic: Denies weakness Psychiatric Psychiatric: Denies depression [facility] Social History Smoking/Tobacco Use Status: Current every day Tobacco Type: cigarettes Alcohol Intake: current Alcohol Intake frequency: a few times a week Drug use: Occasionally Substance use type: marijuana Do you feel safe at home: Yes Do you feel safe in your relationship?: Yes Exam Const General: no acute distress Orientation: alert HENDE Head: normal to inspection Ears: external ears normal General nose exam: external nose normal Mouth: moist mucous membranes Eyes General: appearance normal, both eyes and all related structures Neck Neck: normal visual inspection Resp Effort & Inspection: normal respiratory effort and able to speak in complete sentences Cardio Rate: regular rate Skin General skin exam: no rashes or lesions noted Neuro General: alert and oriented x3 Extrem General: normal capillary refill Psych Mental Status: mental status grossly normal Course Vital Signs Vital signs: Vital Signs Temperature 37.1 C 09/17/19 00:08 Pulse 86 09/17/19 00:08 Respiratory Rate 16 09/17/19 00:08 Blood Pressure 175/113 H 09/17/19 00:08 Pulse Oximetry 98 09/17/19 00:08 Temperature 37.1 C 09/17/19 00:08 Temperature Source Skin 09/17/19 00:08 Pulse 86 09/17/19 00:08 Respiratory Rate 16 09/17/19 00:08 Respiratory Effort 09/17/19 00:12 Blood Pressure 175/113 H 09/17/19 00:08 Pulse Oximetry 98 09/17/19 00:08 Oxygen Delivery Method Room Air 09/17/19 00:08 Oxygen Flow Rate 0 09/17/19 00:08 Pain Level 5 09/17/19 00:08
--- NOTE | 2019-09-17 00:30 | DI.RAD_ITS ---
EXAM: XR HAND RT COMPLETE CLINICAL HISTORY: right hand pain s/p fall TECHNIQUE: COMPARISON: XR hand RT complete from 12/21/2018 FINDINGS: Four views were obtained. Previously described fracture of the head of the 2nd metacarpal has healed since prior study of 12/21/2018. There is a new fracture of the head of the 5th metacarpal with moderate radial and volar angulation o f the distal fracture fragment. No additional new fracture seen. IMPRESSION:
--- NOTE | 2019-09-17 00:33 | NUR.NOTE ---
Nursing Note: Pt now soaking hand in warm water and hibaclens
--- NOTE | 2019-09-17 00:49 | DI.VRAD_ITS ---
PROCEDURE INFORMATION: Exam: XR Right Hand Exam date and time: 09/17/2019 12:22 AM Age: 49 years old Clinical indication: Injury or trauma; Fall; Initial encounter; Laceration; Right; Index finger and middle finger; Injury date: 09/17/19; Patient HX: Pointer finger injury 5-6 months ago per PT TECHNIQUE: Imaging protocol: XR Right hand. Views: 3 or more views. COMPARISON: CR XR hand RT complete 12/21/2018 5:35 PM FINDINGS: Bones/joints: Similar appearing posttraumatic deformity of the 2nd metacarpal head. Abnormal angulation of the 5th metacarpal head. No definite acute fracture. Joint spaces are maintained. Soft tissues: No radiodense foreign body. IMPRESSION: 1. Abnormal angulation of the 5th metacarpal head is new from prior 12/21/2018 radiograph and consistent with age indeterminate traumatic deformity. Recommend clinical correlation. 2. No radiodense foreign body. 3. Posttraumatic deformity of the 2nd metacarpal head. Dictated and Authenticated by: Andrew Schwartz MD. Ordering:TRUDY Oquendo MD
== END 2019-09-17 01:10 | disposition home or self-care (01) ==
LOC: ER 09-17 01:19
PROVIDERS: Emergency Provider Emergency Medicine
DX: S62.336A Displaced fracture of neck of fifth metacarpal bone, right hand, initial encounter for closed fracture (principal); W18.39XA Other fall on same level, initial encounter; T46.5X6A Underdosing of other antihypertensive drugs, initial encounter; Z91.120 Patient's intentional underdosing of medication regimen due to financial hardship; I10 Essential (primary) hypertension
CPT/HCPCS: 26600; 73130

== ENCOUNTER 2020-01-30 05:15 | Emergency (ER) | payer SELFPAY ==
[2020-01-30 05:19] VITALS: BP 183/121; PULSE 112; RESP 16; TEMP 37.1; O2SAT 99
--- NOTE | 2020-01-30 05:28 | ED.GENADUL_ITS ---
Discharge Plan Disposition Patient Disposition: HOME Condition: Stable Discharge Details Chief Complaint: Laceration Clinical Impression: Laceration of hand, right ED Provider: Jere Salgado Home Meds and New Rx's Prescriptions: Continued ibuprofen 600 mg tablet 600 mg PO TID PRN (Reason: pain) Qty: 60 RF: 0 Discharge Instructions Additional Instructions: try to keep the hand straight for a few days to promote healing follow up with a primary care provider regarding your blood pressure if you want to get treatment for this as uncontrolled high blood pressure can cause strokes and heart attacks return to the emergency department for severe worsening pain, fevers, spreading redness or yellow/white discharge Medical Decision Making 49 yo male who denies chronic medical problems comes in with right hand lacerations. He states he punched a mirror yesterday around noon and came in now because it would not stop bleeding. Denies loc or other injuries. He Has a 1cm laceration on dorsal right ulnar surface that is superficial and no foreign body appreciated on exam. Also has a 0.5cm laceration over dip of the index finger with full rom and sensation of all fingers. I strongly recommended xray to eval for fb and fx and he declined, he has the capacity to make his own decisions and understands risks of missing these entities including infection and possible loss of hand and accepts these risks. Discussed risks of placing sutures this far after injury and given risk of infection placed small layer of dermabond on the lacs and no bleeding after, will have nursing place pressure dressing and wrist splint to prevent movement of the hand. He states he is within 2 years of tetanus vaccine. He was advised of his HTN and offered a pcp referral which he declined. Differential Diagnosis Differential Diagnosis: lacerations abrasions fx HPI General Mode of arrival: ambulatory . Date/Time Provider Initiated Documentation: 01/30/20 05:16 . Limitations to Documentation: no limitations . Information obtained by: patient . History of Present Illness 49 year old M presents to the emergency department with the chief complaint of right hand lacerations, described as moderate, and it has been constant. No relieving factors improve symptom(s), No exacerbating factors reported . Patient did receive the following treatments prior to arrival, none Related Data Home Medications Medication Instructions Recorded Confirmed ibuprofen 600 mg PO TID PRN #60 tab 12/21/18 01/30/20 Previous Rx's Medication Instructions Recorded ibuprofen 600 mg PO TID PRN #60 tab 12/21/18 Allergies Allergy/AdvReac Type Severity Reaction Status Date / Time No Known Allergies Allergy Unverified 01/30/20 05:23 General Stated Complaint: Laceration BELTRAN: 4 Review of Systems All systems reviewed & are unremarkable except as noted in HPI and below Constitutional Constitutional: Denies chills, Denies fever(s) and Denies weakness Cardiovascular Cardiovascular: Denies chest pain and Denies dyspnea Respiratory Respiratory: Denies cough and Denies dyspnea Gastrointestinal Gastrointestinal: Denies abdominal pain, Denies nausea and Denies vomiting Neurologic Neurologic: Denies weakness Psychiatric Psychiatric: Denies depression [facility] Medical History (Updated 01/30/20 @ 05:33 by Jere Salgado MD) Pneumonia (Acute) Social History Smoking/Tobacco Use Status: Current every day Tobacco Type: cigarettes Alcohol Intake: current Alcohol Intake frequency: a few times a week Drug use: Occasionally Substance use type: marijuana Do you feel safe at home: Yes Do you feel safe in your relationship?: Yes Exam Const General: no acute distress Orientation: alert HENMT Head: normal to inspection Ears: external ears normal General nose exam: external nose normal Mouth: moist mucous membranes Eyes General: appearance normal, both eyes and all related structures Neck Neck: normal visual inspection Resp Effort & Inspection: normal respiratory effort and able to speak in complete sentences Cardio Rate: regular rate Skin General skin exam: no rashes or lesions noted Neuro General: patient alert and patient oriented x3 Extrem General: full ROM Psych Mental Status: mental status grossly normal Course Vital Signs Vital signs: Vital Signs Temperature 37.1 C 01/30/20 05:19 Pulse 112 H 01/30/20 05:19 Respiratory Rate 16 01/30/20 05:19 Blood Pressure 183/121 H 01/30/20 05:19 Pulse Oximetry 99 01/30/20 05:19 Temperature 37.1 C 01/30/20 05:19 Temperature Source Oral 01/30/20 05:19 Pulse 112 H 01/30/20 05:19 Respiratory Rate 16 01/30/20 05:19 Blood Pressure 183/121 H 01/30/20 05:19 Pulse Oximetry 99 01/30/20 05:19 Pain Level 0 01/30/20 05:19
--- NOTE | 2020-01-30 05:33 | NUR.NOTE ---
Nursing Note: Pt's right hand dressing - large telfa over dried skin glue, secured with pressure dressing. Good distal CMST's. Splint applied- right wrist splint- pt insisted on applying himself- appears to be familiar with it's use. Pt's attitude is volatile and is not open to education from this nurse. Education provided nonetheless.
[2020-01-30 05:36] VITALS: BP 183/121; PULSE 112; RESP 16; TEMP 37.1; O2SAT 99
== END 2020-01-30 05:42 | disposition home or self-care (01) ==
PROVIDERS: Emergency Provider Emergency Medicine
DX: S61.411A Laceration without foreign body of right hand, initial encounter (principal); W26.0XXA Contact with knife, initial encounter; R03.0 Elevated blood-pressure reading, without diagnosis of hypertension
CPT/HCPCS: 12001; 29125; L3908

== ENCOUNTER 2023-09-04 10:27 | Outpatient (CLI) | payer OTHER, SELFPAY ==
--- NOTE | 2023-09-04 10:15 | RT.EKG_ITS ---
APPROVED REPORT Exam: Resting ECG Reason for Exam: Chest discomfort Patient Location: O HR:91 bpm ECG Measurements Heart Rate 91 AXIS WA 156 P 42 QRSd 82 QRS 6 QT 378 T 32 QTc 466 Conclusion Sinus rhythm...normal P axis, V-rate 50- 99 Probable left atrial enlargement...P >50mS, <-0.10mV V1 I have reviewed and interpreted ECG and agree with software generated interpretation.
== END 2023-09-04 10:28 | disposition home or self-care (01) ==
LOC: DI.CM 10:28
PROVIDERS: Visit Provider Physician Assistant
DX: R07.9 Chest pain, unspecified (principal)
CPT/HCPCS: 93010

== ENCOUNTER 2023-09-04 11:07 | Emergency (ER) | payer OTHER, SELFPAY ==
[2023-09-04] VITALS (37 sets, daily range): BP systolic 142–216; BP diastolic 85–143; PULSE 52–85; RESP 13–28; TEMP 36.6; O2SAT 93–99
--- NOTE | 2023-09-04 11:00 | RT.EKG_ITS ---
APPROVED REPORT Exam: Resting ECG Reason for Exam: Chest pain Patient Location: E HR:67 bpm ECG Measurements Heart Rate 67 AXIS GA 160 P 38 QRSd 86 QRS 10 QT 378 T 37 QTc 400 Conclusion Sinus arrhythmia...V-rate 58- 79, variation>10% ST elev, probable normal early repol pattern...ST elevation, age<55 sinus rhtyhm, normal axis, normal intervals, non ischemic
--- NOTE | 2023-09-04 11:25 | W.ED.GENAD ---
HPI General Date/Time Provider Initiated Documentation: 09/04/23 11:09. HPI Narrative: 53-year-old male history of hypertension presents with nonexertional chest pain rating from left anterior chest to left shoulder and arm beginning last night intermittent in nature resolved this morning while being evaluated at [facility]. Referred for further evaluation cardiac rule out. Patient asymptomatic currently denies shortness of breath nausea vomiting diaphoresis palpitations fevers chills or other systemic signs of illness. Denies history of thromboembolic disease. Denies history of coronary disease stenting or heart surgery or other cardiac interventions. Related Data Home Medications Medication Instructions Recorded Confirmed ibuprofen 600 mg tablet 600 mg PO TID PRN pain #60 tabs 12/21/18 09/04/23 amlodipine 2.5 mg tablet 2.5 mg PO DAILY #30 tabs 09/04/23 lisinopril 5 mg tablet 5 mg PO DAILY #30 tabs 09/04/23 Previous Rx's Medication Instructions Recorded ibuprofen 600 mg tablet 600 mg PO TID PRN pain #60 tabs 12/21/18 amlodipine 2.5 mg tablet 2.5 mg PO DAILY #30 tabs 09/04/23 lisinopril 5 mg tablet 5 mg PO DAILY #30 tabs 09/04/23 Allergies Allergy/AdvReac Type Severity Reaction Status Date / Time No Known Allergies Allergy Unverified 09/04/23 10:28 General Stated Complaint: Chest Pain BELTRAN: 3 Review of Systems Narrative: Review of Systems Constitutional: negative Eyes: negative ENT: negative Cardiovascular: Chest pain Respiratory: negative Gastrointestinal: negative : negative Musculoskeletal: negative Skin: negative Neurologic: negative Psych: negative Exam Narrative Exam Narrative: Physical Examination General: alert, awake, cooperative, resting comfortably, no acute distress HEENT: normocephalic, atraumatic; PERRL, EOM intact, conjunctiva normal; no nasal discharge; moist mucous membranes, oral and pharyngeal mucosa normal, tolerating secretions Neck: supple, trachea midline; full ROM Chest: normal to inspection Respiratory: normal respiratory effort, speaking in full sentences, clear to auscultation, no wheezing, rales or rhonchi Cardiac: regular rate, regular rhythm, S1S2 intact, no murmurs rubs or gallops; equal radial pulses GI: abdomen soft, non-tender, non-distended; no palpable mass or hepatosplenomegaly Skin: no lesions, rashes or trauma appreciated; warm well-perfused Neuro: AAOx3, normal speech, moving all extremities Extremities: No peripheral edema Psych: Appropriate mood and affect Course Vital Signs Vital signs: Vital Signs Temperature 36.6 C 09/04/23 11:10 Pulse 84 09/04/23 11:10 Respiratory Rate 18 09/04/23 11:10 Blood Pressure 216/143 H 09/04/23 11:10 Temperature 36.6 C 09/04/23 11:10 Temperature Source Temporal Artery Scan 09/04/23 11:10 Pulse 84 09/04/23 11:10 Respiratory Rate 18 09/04/23 11:10 Blood Pressure 216/143 H 09/04/23 11:10 Pain Level 5 09/04/23 11:10 Medical Decision Making 53-year-old male history of hypertension presents with nonexertional anterior chest discomfort rating to his left shoulder and arm that began last night while at rest intermittent in nature, resolving this morning during evaluation at [facility], noted to be hypertensive in arrival 216/143, normal pulse rate, sinus rhythm on monitor and EKG without ischemic changes, voltage criteria bordering on LVH however no none voltage criteria present; patient resting actively no acute distress. No respiratory distress no peripheral edema. Consider ACS versus symptomatic hypertension lower suspicion for aortic pathology or PE, lower suspicion for pneumothorax pneumonia or pleural effusion. Will obtain basic labs troponin BNP electrolytes, will provide aspirin nitroglycerin 0.4 sublingual close reassessment of symptomatology. Disposition pending reassessment and results 15: 28 resting comfortably 2 troponin negative. Blood pressure better controlled after initiating amlodipine and lisinopril. Patient will follow-up with primary care referral will continue with antihypertensive. Strict return precautions given. Quality:SDOH Health Related Social Needs: No Data to Display PFSH All Active Problems (Updated 09/04/23 @ 15:29 by Reinaldo Wren MD) Hypertension (Chronic) Chest pain (Acute) Fracture of fifth metacarpal bone (Acute) Medical History Pneumonia Social History Smoking/Tobacco Use Status: Current every day Tobacco Type: cigarettes Smoking risk assessment performed?: Yes Alcohol Intake: current Alcohol Intake frequency: a few times a week Drug use: Occasionally Substance use type: marijuana Do you feel safe at home: Yes Do you feel safe in your relationship?: Yes Discharge Plan Disposition Patient Disposition: Home Condition: Improving Discharge Details Clinical Impression: Chest pain, Hypertension Primary Care Provider: None,None ED Provider: Reinaldo Wren Home Meds and New Rx's Prescriptions: New amlodipine 2.5 mg tablet 2.5 mg PO DAILY Qty: 30 1RF lisinopril 5 mg tablet 5 mg PO DAILY Qty: 30 1RF No Action ibuprofen 600 mg tablet 600 mg PO TID PRN (Reason: pain) Qty: 60 0RF Discharge Instructions Instructions: Chest Pain (ED), Hypertension (ED) Additional Instructions: Please follow-up with primary care physician. Return to the emergency department for any worsening symptoms
[2023-09-04 11:32] LABS: Abs Immature Grans 0.03 10^3/uL (0.0-0.06); Absolute Eosinophil Count 0.02 10^3/uL (0.0-0.7); Absolute Monocyte Count 0.66 10^3/uL (0.1-0.8); Absolute Neutrophil Count 8.17 10^3/uL (1.2-6.7); Basophils % 0.4; Eosinophils % 0.2; HCT 41.6 % (40.0-50.0); HGB 14.2 g/dL (13.5-17.5); Immature Grans % 0.3; Lymphocytes % 19.8; MCH 30.5 pg (27.0-33.0); MCHC 34.1 % (32.0-36.0); MCV 89 fL (80-95); MPV 9.7 fL (8.0-11.0); Monocytes % 5.9; Neutrophils % 73.4; Platelet Count 238 10^3/uL (130-400); RBC 4.66 10^6/uL (4.36-5.78); RDW 13.2 % (11.8-14.1); RDW-SD 42.6 fL; WBC 11.13 10^3/uL (4.4-10.8)
[2023-09-04 11:34] LABS: Absolute Basophil Count 0.04 10^3/uL (0.0-0.2)
[2023-09-04 11:46] LABS: INR 1.1 (0.9-1.1); PTT Activated 26.6 sec (23.6-32.8)
[2023-09-04] MEDS: Aspirin 81 MG CHEW 324 MG CH (11:52)
[2023-09-04] MEDS: nitroGLYcerin 0.4 MG TAB SL (11:52)
[2023-09-04 12:08] LABS: ALT 24 U/L (16-63); AST 16 U/L (15-37); Albumin 4.3 g/dL (3.4-5.0); Alkaline Phosphatase 57 U/L (46-116); Anion Gap 12.8 mmol/L (3-11); BUN 9 mg/dL (7-18); Bilirubin, Total 1.4 mg/dL (0.2-1.0); CO2 27.2 mmol/L (21.0-32.0); CREATININE 1.4 mg/dL (0.70-1.30); Calcium 9.8 mg/dL (8.5-10.1); Chloride 105 mmol/L (98-107); Estimated GFR 59.73 (mL/min/1.73m2); Glucose 133 mg/dL (74-106); NT-proBNP 95 pg/mL (<300); Potassium 3.6 mmol/L (3.5-5.1); Sodium 145 mmol/L (136-145); TSH (W/Ref FT4) 1.64 uIU/mL (0.36-3.74); Total Protein 7.8 g/dL (6.4-8.2); Troponin I < 50 ng/L (< or =60)
--- NOTE | 2023-09-04 12:54 | DI.RAD_ITS ---
Exam(s) XR CHEST 2V PA LATERAL EXAM: XR CHEST 2V PA LATERAL CLINICAL HISTORY: ches tpain radiating to left shoudler/arm. TECHNIQUE: 2D digital imaging was performed. COMPARISON: No exams were available for comparison FINDINGS: 2 views: Heart size is normal. The mediastinum is not widened. Lungs are clear. No infiltrates nor pleural effusions. IMPRESSION: No acute pulmonary findings. DATA REPOSITORY: RADIATION DOSE DELIVERED:
[2023-09-04] MEDS: Lisinopril 5 MG TAB PO (13:13)
[2023-09-04] MEDS: amLODIPine 2.5 MG TAB PO (13:13)
[2023-09-04 14:54] LABS: Troponin I < 50 ng/L (< or =60)
--- NOTE | 2023-09-04 16:16 | NUR.NOTE ---
Nursing Note:PT needs PCP follow up in one week for hypertension. Ar[place], ED
== END 2023-09-04 15:37 | disposition home or self-care (01) ==
PROVIDERS: Emergency Provider Emergency Medicine
DX: R07.9 Chest pain, unspecified (principal); I10 Essential (primary) hypertension; F17.210 Nicotine dependence, cigarettes, uncomplicated
CPT/HCPCS: 80053; 93005; 99284; 71046; 83880; 84443; 84484; 85025; 85610; 85730; 93010; 99283